=== PATIENT | female | born 1980 | race Caucasian/White ===

== ENCOUNTER → 2021-07-30 17:48 | Outpatient (CLI) | payer BC, SELFPAY ==
[2021-07-30 19:17] LABS: Basophils # 0.1 K/mm3 (0-0.2); Basophils % 1.1 % (0.1-2.0); Eosinophils # 0.2 K/mm3 (0.0-0.4); Eosinophils % 2.3 % (0.1-12.0); Hematocrit 44.4 % (37.0-47.0); Hemoglobin 14.4 g/dL (12.2-16.2); Mean Corpuscular HGB Conc 32.5 g/dL (31.8-35.4); Mean Corpuscular Hemoglobin 31.7 pg (27.0-31.2); Mean Corpuscular Volume 97.6 fl (81-99); Mean Platelet Volume 10.2 fl (7.4-10.4); Monocytes # 0.3 K/mm3 (0.1-1.0); Monocytes % 5.1 % (1.7-9.3); Neutrophils # 3.8 K/mm3 (1.8-7.8); Neutrophils % 59.5 % (37.0-80.0); Platelet Count 275 K/mm3 (142-424); Red Blood Count 4.55 M/mm3 (4.20-5.40); Red Cell Distribution Width 13.3 % (11.5-17.5); White Blood Count 6.4 K/mm3 (4.8-10.8)
[2021-07-30 19:31] LABS: Chloride 103 mmol/L (98-107); Sodium 140 mmol/L (136-145)
[2021-07-30 19:32] LABS: Potassium 4.3 mmoL/L (3.5-5.1)
[2021-07-30 19:34] LABS: Alanine Aminotransferase 9 U/L (12-78); Albumin Level 4.4 g/dl (3.5-5.0); Albumin/Globulin Ratio 1.7 (1.1-1.8); Alkaline Phosphatase 65 U/L (38-126); Anion Gap 14.3 mEq/L (5-15); Aspartate Amino Transferase 32 U/L (14-36); Bilirubin,Total 0.2 mg/dl (0.2-1.3); Blood Urea Nitrogen 9 mg/dl (7-17); Carbon Dioxide 27 mmol/L (22.0-30.0); Cholesterol 129 mg/dl (140-200); Estimated Glomerular Filt Rate 109 ml/min (>60); GFR (African American) 132 ML/MIN (>60); Globulin 2.6 g/dL (1.3-3.2); Triglycerides 78 mg/dl (30-150); VLDL Cholesterol 16 mg/dL (0-40)
[2021-07-30 19:35] LABS: Calcium 9.8 mg/dl (8.4-10.2); Chol/HDL Ratio 2.1 (1-3.5); Glucose 86 mg/dl (74-100); HDL Cholesterol 62 mg/dl (40-60)
[2021-07-30 19:46] LABS: Direct LDL Cholesterol 31.69 mg/dL (100-129)
[2021-07-30 19:52] LABS: T4 (Thyroxine) 8.3 ug/dl (5.53-11.0)
[2021-07-30 19:53] LABS: 25-OH Vitamin D, Total 47.1 ng/mL (30-100)
[2021-07-30 20:06] LABS: Thyroid Stimulating Hormone 1.05 uIU/mL (0.465-4.68)
== END ==
PROVIDERS: Visit Provider Physician Assistant
DX: E66.3 Overweight (principal); Z68.27 Body mass index [BMI] 27.0-27.9, adult; R63.5 Abnormal weight gain
CPT/HCPCS: 80053; 80061; 82306; 84436; 84443; 85025

== ENCOUNTER 2024-12-24 07:01 | Outpatient (CLI) | payer SELFPAY ==
--- NOTE | 2024-12-24 07:09 | CT_ITS ---
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 A noncontrast coronary calcium scan was performed. A CT attenuation threshold of 130 Hounsfield units (HU) was used for the detection of calcium in contiguous voxels of 1 sq mm in area to be counted as individual lesions. A tube voltage of 120 KVp was used. The patient received no medications prior to the coronary calcium CT. Image Reconstruction Transaxial images were reconstructed at 0.67 mm slide thickness. Data was reviewed interactively on an advanced workstation capable of 2 and 3-dimensional displays in all conventional reconstruction formats, including multiplanar reformations, maximum intensity projections, curved multiplanar reformations, and volume rendered reconstructions. When applicable, selected routine images describing the relevant coronary anatomy and pathology were saved and sent to PACS. Complications None Technical Quality Overall image quality was good. Total DLP (Dose-Length Product) is 161.9 mGy-cm. The reported value represents the total of one or more individual components during the CT acquisition of this date and at this time, and as such, the same value may appear in more than one CT report depending on the interpreting/reporting physicians. COMPARISON None FINDINGS CT Coronary Calcium Scoring LMA (Left Main Artery) = 0 LAD (Left Anterior Descending) = 0 LCX (Left Coronary Circumflex) = 0 RCA (Right Coronary Artery) = 0 Total Calcium Score = 0 using the AJ-130 method. There is no identifiable calcification in the aortic valve, mitral annulus or mitral valve, pericardium, or myocardium. IMPRESSION -Coronary artery calcification is absent. -Total Calcium Score (Agatston Score) = 0 using the AJ-130 method. The interpretation of the calcium heart score is based on the following continuum*: 0 = no calcified plaque detected (risk of coronary artery disease is very low ??? less than 5%) 1-10 = calcium detected in extremely minimal levels (risk of coronary diseases is still low ??? less than 10%) 11-100 = mild levels of plaque detected with certainty (mild or minimal narrowing of heart arteries is likely) 101-400 = definite,at least moderate levels of plaque detected (relatively high risk of a heart attack within 3-5 years) >401-999 = extensive levels of plaque detected (high risk of heart attack, high levels of vascular disease are present, high likelihood of at least one significant coronary narrowing) *The calcium heart score quantifies the burden of coronary calcification/plaque in the coronary arteries. The calcium heart score does not evaluate the presence or the burden of non-calcified (i.e. soft) plaque. The coronary and cardiac findings of this Coronary Calcium CT were reviewed, reported, and signed by Zhang Ng MD (Loss Prevention Detective). Conclusion Electronically signed by : Juani Ng MD 12/28/2024 12:03:29
== END 2024-12-24 23:59 | disposition home or self-care (01) ==
PROVIDERS: PCP Physician Assistant; Visit Provider Physician Assistant
DX: Z13.6 Encounter for screening for cardiovascular disorders (principal)
CPT/HCPCS: 75571